=== PATIENT | male | born 1970 | race Caucasian/White ===

== ENCOUNTER 2022-12-15 13:51 | Emergency (ER) | payer OTHER, SELFPAY ==
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
[2022-12-15 13:54] VITALS: BP 135/74; PULSE 89; RESP 18; TEMP 36.6; O2SAT 97
[2022-12-15 16:14] VITALS: BP 140/93; PULSE 68; RESP 18; TEMP 36.6; O2SAT 100
--- NOTE | 2022-12-15 16:14 | PC.NURSE ---
patient taken to ct at this time
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
[2022-12-15] MEDS: diazePAM (*CRX) 5 MG TABLET PO (17:51)
[2022-12-15 18:20] VITALS: BP 118/78; PULSE 80; RESP 16; O2SAT 99
== END 2022-12-15 18:20 | disposition home or self-care (01) ==
PROVIDERS: Emergency Provider Student in an Organized Health Care Education/Training Program
DX: S16.1XXA Strain of muscle, fascia and tendon at neck level, initial encounter (principal); M47.812 Spondylosis without myelopathy or radiculopathy, cervical region; V49.40XA Driver injured in collision with unspecified motor vehicles in traffic accident, initial encounter
CPT/HCPCS: 72125; 99284; A9270